=== PATIENT | male | born 1955 | race Two or more races ===

== ENCOUNTER 2020-04-28 18:05 | Emergency (ER) | payer SELFPAY ==
[~2020-04-28] VITALS: Ht 167.6 cm; Wt 62.1 kg
--- NOTE | 2020-04-28 18:46 | NUR ---
CALLED [employer] [id number] WILL SEND A UNIT OUT TO US.
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
[2020-04-28 18:54] LABS: BASOPHILS # (AUTO) 0.1 /CMM (0.0-0.2); BASOPHILS % (AUTO) 0.5 % (0.0-2.0); EOSINOPHILS % (AUTO) 0.4 % (0.0-6.0); HEMATOCRIT 51 % (39-51); HEMOGLOBIN 17.3 g/dL (13.5-17.5); LYMPHOCYTES # (AUTO) 1.9 /CMM (0.8-4.8); LYMPHOCYTES % (AUTO) 8.2 % (20.0-44.0); MEAN CORPUSCULAR HGB CONC 34 g/dl (31.0-36.0); MEAN CORPUSCULAR VOLUME 96 fL (80-96); MONOCYTES # (AUTO) 1.2 /CMM (0.1-1.30); MONOCYTES % (AUTO) 5.1 % (2.0-12.0); NEUTROPHILS % (AUTO) 85.8 % (43.0-81.0); PLATELET COUNT (AUTO) 346 /CMM (150-450); RED BLOOD CELL COUNT(AUTO) 5.33 MIL/uL (4.5-6.0); WHITE BLOOD COUNT (AUTO) 23.3 K/uL (4.3-11.0)
[2020-04-28 19:02] LABS: CALCIUM, SERUM 9.1 mg/dL (8.5-10.1); CREATININE 0.9 mg/dL (0.6-1.3); POTASSIUM 3.1 mmol/L (3.5-5.1)
--- NOTE | 2020-04-28 19:09 | NUR ---
PT LEFT FOR CT VIA [facility]
--- NOTE | 2020-04-28 19:35 | NUR ---
PT RETURNED FROM CT.
--- NOTE | 2020-04-28 20:12 | NUR ---
CALLED [facility] FOR TRANSFERRED, REFERRED TO CALL [facility]
--- NOTE | 2020-04-28 20:13 | NUR ---
DIEGO MAGALLANES ARRIVED AND IS SPEAKING WITH THE PT.
--- NOTE | 2020-04-28 20:18 | NUR ---
CALLED [facility]. PER REGULO, NO [facility] SERVICES AVAILABLE
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
--- NOTE | 2020-04-28 20:31 | NUR ---
CALLED [facility] FOR POSSIBLE TRANSFER, DR. RUBY SPEAKING WITH DR. WARD
--- NOTE | 2020-04-28 20:36 | NUR ---
PT ACCEPTED TO [facility] BY DR. WARD
--- NOTE | 2020-04-28 20:38 | NUR ---
[facility] ETA [id number] TRIP#[id number]
[2020-04-28] MEDS ORDERED: MORPHINE SULFATE INJ 4 MG/ML DISP.SYRIN ONE (20:42)
[2020-04-28] MEDS ORDERED: ONDANSETRON HCL/PF 4 MG/2 ML VIAL ONE (20:42)
[2020-04-28] MEDS ORDERED: PIPERACILLIN /TAZOBACTAM 3.375 G VIAL IV ONE (20:42)
[2020-04-28] MEDS ORDERED: IV NS 0.9% 1,000 ML BAG IV ONE (21:00)
[2020-04-28] MEDS ORDERED: ONDANSETRON HCL/PF 4 MG/2 ML VIAL IVP ONE (21:00)
[2020-04-28] MEDS ORDERED: PIPERACILLIN /TAZOBACTAM 3.375 G in IV D5W 50 ML IV ONE (21:00)
[2020-04-28] MEDS ORDERED: MORPHINE SULFATE INJ 2 MG/ML DISP.SYRIN IV ONE (21:00)
[2020-04-28 21:22] VITALS: BP 188/110
--- NOTE | 2020-04-28 21:26 | NUR ---
REPORT TO LONNIE KEEN AT [facility].
--- NOTE | 2020-04-28 21:27 | NUR ---
REPORT GIVEN TO [facility]. COPY OF THE CHART GIVEN.
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
== END 2020-04-28 22:08 ==
LOC: ER 18:10
DX: S02.2XXA Fracture of nasal bones, initial encounter for closed fracture (principal); S02.411A LeFort I fracture, initial encounter for closed fracture; S02.412A LeFort II fracture, initial encounter for closed fracture; F17.200 Nicotine dependence, unspecified, uncomplicated; Z59.0 Homelessness; Y04.0XXA Assault by unarmed brawl or fight, initial encounter; Y93.89 Activity, other specified; Y92.89 Other specified places as the place of occurrence of the external cause; Y99.8 Other external cause status
CPT/HCPCS: 36415; 70450; 70486; 71045; 72125; 80048; 85025; 85730; 96365; 96375; 99285; J2270; J2405; J2543 ×2; J7030; J7060